=== PATIENT | male | born 1955 | race Caucasian/White ===

== ENCOUNTER 2020-12-11 10:48 | Outpatient (CLI) | payer OTHER, SELFPAY ==
--- NOTE | 2020-12-11 10:56 | MR_ITS ---
WS: [id number] MRI RIGHT KNEE NONCONTRAST TECHNIQUE: Axial PD, coronal PD fat sat, coronal PD, sagittal PD, and sagittal PD fat-sat images obta ined. CLINICAL INFORMATION: RIGHT ANTERIOR KNEE PAIN COMPARISON: None. FINDINGS: Distal quadriceps and patella tendons are intact. Hypertrophic patella. Small suprapatellar effusion. Normal ACL and PCL. Small amount of prepatellar soft tissue edema. Normal lateral meniscus. Complex horizontal tear involving the posterior horn medial meniscus extending to the meniscal root and artic ular surface. Blunting of the medial meniscus. Normal medial and lateral collateral ligaments. Moderate chondromalacia patella. No subchondral edema. MR/MR knee RT wo con* [id number] IMPRESSION: 1. Normal ACL and PCL. 2. Complex horizontal tear involving the posterior horn medial meniscus extend ing to the articular surface. Blunting of the medial meniscus. 3. Small suprapatellar effusion. 4. Moderate chondromalacia patella.
== END 2020-12-11 10:49 | disposition home or self-care (01) ==
LOC: RADWPI 10:51
PROVIDERS: PCP Nurse Practitioner Family; Visit Provider Nurse Practitioner Family
DX: M25.561 Pain in right knee (principal); S83.231A Complex tear of medial meniscus, current injury, right knee, initial encounter; X58.XXXA Exposure to other specified factors, initial encounter; M25.461 Effusion, right knee; M22.41 Chondromalacia patellae, right knee
CPT/HCPCS: 73721